=== PATIENT | male | born 1980 | race Caucasian/White ===

== ENCOUNTER 2019-11-01 02:40 | Emergency (ER) | payer MEDICAID ==
[~2019-11-01] VITALS: Ht 170.2 cm; Wt 80.9 kg
[2019-11-01 02:52] VITALS: BP 141/93; Ht 170.2 cm; Wt 80.9 kg
== END 2019-11-01 07:24 | disposition home or self-care (01) ==
LOC: ED 02:40
DX: L72.3 Sebaceous cyst (principal)
CPT/HCPCS: J2001